=== PATIENT | male | born 1975 | race American Indian/Alaskan Native ===

== ENCOUNTER 2017-08-27 20:33 | Emergency (ER) | payer SELFPAY ==
[2017-08-27 20:59] VITALS: BP 146/92
[2017-08-27] MEDS ORDERED: MOTRIN ONE (21:52)
[2017-08-27] MEDS ORDERED: MOTRIN PO ONE (21:55)
== END 2017-08-27 22:12 | disposition left against medical advice (07) ==
LOC: ED 20:33
DX: L02.12 Furuncle of neck (principal); Z53.21 Procedure and treatment not carried out due to patient leaving prior to being seen by health care provider